=== PATIENT | male | born 1965 | race Caucasian/White ===

== ENCOUNTER → 2018-02-26 | Outpatient (REF) | payer BC ==
[2018-02-26 13:33] LABS: ALBUMIN 4.1 GM/DL (3.2-5.2); ALT/SGPT 68 U/L (12-78); BILIRUBIN,TOTAL 0.3 MG/DL (0.2-1.0); BLOOD UREA NITROGEN 20 MG/DL (7-18); CALCIUM LEVEL 8.7 MG/DL (8.5-10.1); CARBON DIOXIDE LEVEL 27 MEQ/L (21-32); CHLORIDE LEVEL 104 MEQ/L (98-107); CHOLESTEROL LEVEL 178 MG/DL (<200); CHOLESTEROL RISK RATIO 3.869 (<5); CREATININE FOR GFR 1.06 MG/DL (0.70-1.30); GLOMERULAR FILTRATION RATE > 60.0 (>56); GLUCOSE, FASTING 152 MG/DL (70-100); HDL CHOLESTEROL 46 MG/DL (>40); LDL CHOLESTEROL 90 MG/DL (<100); NON-HDL-C 132 MG/DL; POTASSIUM SERUM 4.5 MEQ/L (3.5-5.1); SODIUM LEVEL 140 MEQ/L (136-145); TOTAL PROTEIN 6.8 GM/DL (6.4-8.2); TRIGLYCERIDES LEVEL 212 MG/DL (<150)
[2018-02-26 13:35] LABS: TOTAL 25(OH) VITAMIN D 17.6 NG/ML (30.0-100.0)
[2018-02-26 13:36] LABS: TESTOSTERONE 274 NG/DL (241-827)
[2018-02-26 14:56] LABS: HEMOGLOBIN A1c 5.9 %
== END ==
LOC: M LAB REF 12:14
PROVIDERS: ATTEND Nurse Practitioner Adult Health
DX: Z13.9 Encounter for screening, unspecified (principal)
CPT/HCPCS: 80053; 80061; 82306; 83036; 84403; 84443; G0103

== ENCOUNTER 2018-05-12 10:39 | Day surgery (SDC) | payer BC ==
[~2018-05-12] VITALS: Ht 172.7 cm; Wt 83.0 kg
[~2018-05-12 10:39] MED LIST: ACET-683 PO; NS 1,000 ML IV ONE; OMEP20CA3 PO; PROPOFOL 500 MG/50 ML VIAL As Ordered ONE
[2018-05-12] MEDS ORDERED: LIDOCAINE 2% INJ 100 MG/5 ML SDV (FOR ANES.) As Ordered ONE (11:13)
--- NOTE | 2018-05-12 11:21 | ROOR ---
Patient Name: Ky Sow Procedure Date: 05/12/2018 11:11 AM Date of : 1965 Age: 53 Room: [facility] Gender: Male Note Status: Finalized Procedure: Upper GI endoscopy Indications: Heartburn Providers: Jonathan FARMER MD Referring MD: Lani Card MD Requesting Provider: Medicines: Monitored Anesthesia Care Complications: No immediate complications. Procedure: Pre-Anesthesia Assessment: - The heart rate, respiratory rate, oxygen saturations, blood pressure, adequacy of pulmonary ventilation, and response to care were monitored throughout the procedure. The Endoscope was introduced through the mouth, and advanced to the second part of duodenum. The upper GI endoscopy was accomplished without difficulty. The patient tolerated the procedure well. Findings: The esophagus was normal. The stomach was normal. The examined duodenum was normal. Impression: - Normal esophagus. - Normal stomach. - Normal examined duodenum. - No specimens collected. Recommendation: - Continue present medications. - Observe patient's clinical course. Jonathan Farmer MD Jonathan FARMER MD 05/12/2018 11:21:17 AM This report has been signed electronically. Number of Addenda: 0 Note Initiated On: 05/12/2018 11:11 AM Estimated Blood Loss: Estimated blood loss: none.
--- NOTE | 2018-05-12 11:31 | ROOR ---
Patient Name: Ky Sow Procedure Date: 05/12/2018 11:11 AM Date of : 1965 Age: 53 [facility] Note Status: Finalized Procedure: Colonoscopy Indications: Screening for colorectal malignant neoplasm, Incidental change in bowel habits noted Providers: Jonathan FARMER MD Referring MD: Lani Card MD Requesting Provider: Medicines: Monitored Anesthesia Care Complications: No immediate complications. Procedure: Pre-Anesthesia Assessment: - The heart rate, respiratory rate, oxygen saturations, blood pressure, adequacy of pulmonary ventilation, and response to care were monitored throughout the procedure. The Colonoscope was introduced through the anus and advanced to 10 cm into the ileum. The colonoscopy was performed without difficulty. The patient tolerated the procedure well. The quality of the bowel preparation was good. Findings: The perianal and digital rectal examinations were normal. The terminal ileum appeared normal. The entire examined colon appeared normal on direct and retroflexion views. Small Internal Hemorrhoids. Impression: - The terminal ileum was normal. - The entire colon is normal on direct and retroflexion views. - Small Internal Hemorrhoids. - No specimens collected. Recommendation: - Repeat colonoscopy in 10 years for screening purposes. Jonathan Farmer MD Jonathan FARMER MD 05/12/2018 11:30:42 AM This report has been signed electronically. Number of Addenda: 0 Note Initiated On: 05/12/2018 11:11 AM Estimated Blood Loss: Estimated blood loss: none.
[2018-05-12 11:56] VITALS: BP 129/84
== END 2018-05-12 11:56 | disposition home or self-care (01) ==
LOC: M OPP 10:39
PROVIDERS: ATTEND Internal Medicine Gastroenterology
DX: Z12.11 Encounter for screening for malignant neoplasm of colon (principal); K64.8 Other hemorrhoids; R12 Heartburn; F17.210 Nicotine dependence, cigarettes, uncomplicated; Z90.49 Acquired absence of other specified parts of digestive tract

== ENCOUNTER 2018-12-14 14:40 | Emergency (ER) | payer BC ==
[~2018-12-14] VITALS: Ht 172.7 cm; Wt 84.8 kg
[~2018-12-14 14:40] MED LIST changes: -NS 1,000 ML IV ONE; -OMEP20CA3 PO; +OMEP20CA4 PO; -PROPOFOL 500 MG/50 ML VIAL As Ordered ONE
[2018-12-14 15:44] LABS: BASO % 0.3 % (0.0-1.0); EOS # 0.1 10^3/uL (0.0-0.5); EOS % 1.2 % (0.0-3.0); HEMATOCRIT 44.9 % (42.0-52.0); HEMOGLOBIN 15.4 g/dl (13.5-17.5); LYMPH # 2.2 10^3/uL (1.5-5.0); MEAN CORPUSCULAR HEMOGLOBIN 30.9 pg (27.0-33.0); MEAN CORPUSCULAR HGB CONC 34.3 g/dl (32.0-36.5); MONO % 8.3 % (0.0-5.0); NEUTROPHILS # 8.7 10^3/uL (1.5-8.5); NEUTROPHILS % 71.9 % (36.0-66.0); PLATELET COUNT, AUTOMATED 257 10^3/uL (150-450); RED BLOOD COUNT 4.99 10^6/uL (4.30-6.10); WHITE BLOOD COUNT 12.1 10^3/uL (4.0-10.0)
[2018-12-14] MEDS ORDERED: IBUP200C25 PO (15:50)
[2018-12-14 16:12] LABS: ALBUMIN 3.9 GM/DL (3.2-5.2); BILIRUBIN,DIRECT 0.1 MG/DL (0.0-0.2); BILIRUBIN,TOTAL 0.3 MG/DL (0.2-1.0); CALCIUM LEVEL 9.5 MG/DL (8.5-10.1); CREATININE FOR GFR 1.45 MG/DL (0.70-1.30); POTASSIUM SERUM 4.6 MEQ/L (3.5-5.1); TOTAL PROTEIN 6.5 GM/DL (6.4-8.2)
[2018-12-14] MEDS ORDERED: NS 1,000 ML IV ONE (16:15)
[2018-12-14] MEDS ORDERED: ONDA4TAB6 PO (18:36)
[2018-12-14] MEDS ORDERED: FLOM0.4C39 PO (18:36)
[2018-12-14 18:47] VITALS: BP 150/94
[2018-12-15] MEDS ORDERED: HYDR-3713 PO (06:57)
--- NOTE | 2018-12-15 07:22 | REP ---
REASON: Right flank pain. PRIORS: None. The lung bases are clear. Limited evaluation of the solid intra-abdominal organs and gallbladder show no gross abnormalities. Limited evaluation of the pancreas, adrenal glands, and left kidney show no gross abnormalities. There is no left-sided nephroureterolithiasis, hydronephrosis, or hydroureter. There is mild right-sided hydronephrosis and hydroureter with periureteral edema and perinephric stranding. In the distal right ureter, there is a 3 to 4 mm sized ureterolith responsible for the aforementioned findings. The abdominal aorta and paraaortic regions are within normal limits. The bowel loops and mesenteries, although seen in a limited fashion are unremarkable in the abdomen and pelvis. There is no free fluid or free air in the abdomen or pelvis. The osseous structures are within normal limits for the patient's age. IMPRESSION: Distal right ureterolith with resultant findings as described above. Electronically Signed by Maynor Landa DO 12/15/2018 12:46 P
[2018-12-15] MEDS ORDERED: OXYC1TAB23 PO (09:17)
[2018-12-15] MEDS ORDERED: HYDR2TAB2 PO (11:22)
== END 2018-12-14 18:50 | disposition home or self-care (01) ==
LOC: M ED 14:40
DX: N23 Unspecified renal colic (principal); N20.0 Calculus of kidney; N13.30 Unspecified hydronephrosis; N17.9 Acute kidney failure, unspecified; E86.0 Dehydration; K21.9 Gastro-esophageal reflux disease without esophagitis; Z87.442 Personal history of urinary calculi; Z87.448 Personal history of other diseases of urinary system; Z87.19 Personal history of other diseases of the digestive system; F17.200 Nicotine dependence, unspecified, uncomplicated

== ENCOUNTER 2018-12-15 06:48 | Emergency (ER) | payer BC ==
[~2018-12-15] VITALS: Ht 172.7 cm; Wt 83.5 kg
[~2018-12-15 06:48] MED LIST changes: +FLOM0.4C39 PO; +IBUP200C25 PO; +ONDA4TAB6 PO
[2018-12-15] MEDS ORDERED: HYDR-3713 PO (06:57)
[2018-12-15] MEDS ORDERED: ONDANSETRON 4MG/2ML VIAL (J2405) IV ONE (07:30)
[2018-12-15] MEDS ORDERED: NS 1,000 ML IV ONE (07:30)
[2018-12-15] MEDS: MORPHINE 4 MG/ML 1ML VIAL/SYRINGE (J2270) IV PRN ×2 (08:04→08:38)
[2018-12-15 08:22] LABS: BASO % 0.2 % (0.0-1.0); EOS % 0.1 % (0.0-3.0); HEMATOCRIT 45.2 % (42.0-52.0); HEMOGLOBIN 15.6 g/dl (13.5-17.5); LYMPH # 1.5 10^3/uL (1.5-5.0); LYMPH % 7.5 % (24.0-44.0); MEAN CORPUSCULAR HEMOGLOBIN 30.4 pg (27.0-33.0); MEAN CORPUSCULAR HGB CONC 34.5 g/dl (32.0-36.5); MEAN CORPUSCULAR VOLUME 88.1 fl (80.0-96.0); MONO # 1.2 10^3/uL (0.0-0.8); MONO % 6.1 % (0.0-5.0); NEUTROPHILS # 16.7 10^3/uL (1.5-8.5); NEUTROPHILS % 85.4 % (36.0-66.0); PLATELET COUNT, AUTOMATED 275 10^3/uL (150-450); RED BLOOD COUNT 5.13 10^6/uL (4.30-6.10); WHITE BLOOD COUNT 19.6 10^3/uL (4.0-10.0)
[2018-12-15 08:48] LABS: BILIRUBIN,DIRECT 0.2 MG/DL (0.0-0.2); BILIRUBIN,TOTAL 0.7 MG/DL (0.2-1.0); TOTAL PROTEIN 6.7 GM/DL (6.4-8.2)
[2018-12-15] MEDS ORDERED: PERCOCET 5MG/325MG TAB PO ONE (09:15)
[2018-12-15] MEDS ORDERED: TAMSULOSIN 0.4 MG CAP PO ONE (09:15)
[2018-12-15] MEDS ORDERED: OXYC1TAB23 PO (09:17)
[2018-12-15] MEDS ORDERED: HYDROMORPHONE HCL 0.5 MG/ 0.5 ML SYRINGE (J1170 PER 1) IV PRN (09:45)
[2018-12-15] MEDS ORDERED: HYDR2TAB2 PO (11:22)
[2018-12-15 11:33] VITALS: BP 113/71
== END 2018-12-15 11:39 | disposition home or self-care (01) ==
LOC: M ED 06:48
DX: N23 Unspecified renal colic (principal); N20.9 Urinary calculus, unspecified; R11.2 Nausea with vomiting, unspecified; F17.200 Nicotine dependence, unspecified, uncomplicated
CPT/HCPCS: 80047; 80076; 81001; 83690; 85025; 96361; 96374; 96375; 96376; 99284; J2270; J2405

== ENCOUNTER → 2021-04-05 | Outpatient (CLI) | payer OTHER ==
[~2021-04-05] MED LIST changes: +HYDR-3713 PO; +HYDR2TAB2 PO; +OMEP1CAP73 PO; -OMEP20CA4 PO; +OXYC1TAB23 PO
== END ==
LOC: M WUC 13:34
PROVIDERS: ATTEND Nurse Practitioner Family
DX: Z77.090 Contact with and (suspected) exposure to asbestos (principal)

== ENCOUNTER → 2021-12-15 | Outpatient (CLI) | payer OTHER | LOC: M WUC 15:38 | PROVIDERS: ATTEND Nurse Practitioner Family | DX: M25.561 Pain in right knee (principal); M17.11 Unilateral primary osteoarthritis, right knee; M25.761 Osteophyte, right knee ==

== ENCOUNTER → 2022-01-24 | Outpatient (CLI) | payer OTHER | LOC: M SOG 08:08 | PROVIDERS: ATTEND Orthopaedic Surgery Adult Reconstructive Orthopaedic Surgery | DX: M25.561 Pain in right knee (principal) ==

== ENCOUNTER → 2024-07-19 | Outpatient (CLI) | payer OTHER ==
[~2024-07-19] MED LIST changes: -FLOM0.4C39 PO; +ONDA-282 PO; -ONDA4TAB6 PO; +TAMS-18 PO
[2024-07-19 09:18] LABS: HEMOGLOBIN A1c 5.2 % (4.0-6.0)
[2024-07-19 09:30] LABS: PROSTATIC SPECIFIC AG MONITOR 0.63 NG/ML (< 4.00)
[2024-07-19 09:31] LABS: ALBUMIN 4.1 G/DL (3.2-5.2); ALKALINE PHOSPHATASE 103 U/L (40-129); ALT/SGPT 55 U/L (7.0-40); AST/SGOT 24 U/L (<34); BILIRUBIN,TOTAL 0.4 MG/DL (0.3-1.2); BLOOD UREA NITROGEN 17 MG/DL (9-23); CARBON DIOXIDE LEVEL 27 MMOL/L (20-31); CHLORIDE LEVEL 109 MMOL/L (98-107); CHOLESTEROL LEVEL 149 MG/DL (<200); CHOLESTEROL RISK RATIO 3.38 (<5); CREATININE FOR GFR 0.81 MG/DL (0.70-1.30); GLOMERULAR FILTRATION RATE > 90.0 (>49); GLUCOSE, FASTING 94 MG/DL (74-106); LDL CHOLESTEROL 82.2 MG/DL (<100); POTASSIUM SERUM 4.9 MMOL/L (3.5-5.1); SODIUM LEVEL 141 MMOL/L (136-145); TOTAL PROTEIN 6.5 G/DL (5.7-8.2); TRIGLYCERIDES LEVEL 114 MG/DL (<150)
[2024-07-19 09:31] LABS: MALB URINE SIEMENS < 3.0 MG/L
[2024-07-19 09:34] LABS: THYROID STIMULATING HORMONE 1.639 uIU/ML (0.55-4.78); TOTAL 25(OH) VITAMIN D 24.9 NG/ML (20.0-100.0)
== END ==
LOC: M LAB 08:15
PROVIDERS: ATTEND Physician Assistant
DX: I10 Essential (primary) hypertension (principal); E55.9 Vitamin D deficiency, unspecified; Z12.5 Encounter for screening for malignant neoplasm of prostate; M25.521 Pain in right elbow; M25.522 Pain in left elbow; M25.511 Pain in right shoulder

== ENCOUNTER → 2024-07-21 | Outpatient (CLI) | payer OTHER | LOC: M SOG 06:57 | PROVIDERS: ATTEND Orthopaedic Surgery | DX: M25.511 Pain in right shoulder (principal) ==